=== PATIENT | male | born 1990 | race African-American/Black ===

== ENCOUNTER 2017-11-28 22:46 | Emergency (ER) | payer BC ==
[~2017-11-28] VITALS: Ht 182.9 cm; Wt 113.4 kg
[2017-11-28] MEDS ORDERED: IBUPROFEN400 MG PO (23:05)
[2017-11-28] MEDS ORDERED: BROMFED DM COU118 ML PO (23:05)
[2017-11-28] MEDS ORDERED: AZITHROMYCIN250 MG PO (23:27)
== END 2017-11-28 23:35 | disposition home or self-care (01) ==
LOC: FSED 22:46
DX: J02.0 Streptococcal pharyngitis (principal); R05 Cough
CPT/HCPCS: 83518; 99282

== ENCOUNTER 2018-04-27 19:35 | Emergency (ER) | payer BC ==
[~2018-04-27] VITALS: Ht 182.9 cm; Wt 113.4 kg
[~2018-04-27 19:35] MED LIST: AZITHROMYCIN250 MG PO; BROMFED DM COU118 ML PO; IBUPROFEN400 MG PO
== END 2018-04-27 20:53 | disposition home or self-care (01) ==
LOC: FSED 19:35
DX: H60.92 Unspecified otitis externa, left ear (principal)
CPT/HCPCS: 99283

== ENCOUNTER 2018-09-29 20:43 | Emergency (ER) | payer BC ==
[~2018-09-29] VITALS: Ht 182.9 cm; Wt 161.2 kg
[2018-09-29] MEDS ORDERED: ALBUTEROL/IPRATROPIUM 3 ML NEB NEB ONE (21:30)
--- NOTE | 2018-09-29 21:48 | Diagnostic Imaging Report ---
EXAMINATION: CXR 2 VIEW - HOPD INDICATION: Cough and fever ^[id number] ^[id number] COMPARISON: None FINDINGS: PA and lateral views TUBES and LINES: None. LUNGS: Limited by body habitus. Lungs are well inflated. Medial right lower lung field hazy opacification. PLEURA: No pleural effusion or pneumothorax. HEART AND MEDIASTINUM: The cardiomediastinal silhouette is unremarkable. BONES AND SOFT TISSUES: No acute osseous lesion. Soft tissues are unremarkable. UPPER ABDOMEN: No free air under the diaphragm. IMPRESSION: Medial right lower lung field hazy opacification, concerning for right middle lobe developing pneumonia. Signed by: Dr. Andre Eller MD on 09/29/2018 9:44 PM
[2018-09-30 00:34] VITALS: BP 175/90
== END 2018-09-29 22:40 | disposition home or self-care (01) ==
LOC: FSED 20:43
DX: R05 Cough (principal); J11.08 Influenza due to unidentified influenza virus with specified pneumonia; J12.9 Viral pneumonia, unspecified
CPT/HCPCS: 71046